=== PATIENT | male | born 1985 | race Caucasian/White ===

== ENCOUNTER 2020-03-19 08:49 | Emergency (ER) | payer OTHER, SELFPAY ==
[~2020-03-19] VITALS: Ht 177.8 cm; Wt 113.4 kg
[2020-03-19 08:59] VITALS: Ht 177.8 cm; Wt 113.4 kg
[2020-03-19 11:37] VITALS: BP 119/65
== END 2020-03-19 11:37 | disposition home or self-care (01) ==
LOC: ED 08:49
DX: R50.9 Fever, unspecified (principal); R11.2 Nausea with vomiting, unspecified; Z20.828 Contact with and (suspected) exposure to other viral communicable diseases
CPT/HCPCS: 87804; J1885; Q0092; Q0162